=== PATIENT | female | born 1975 | race Caucasian/White ===

== ENCOUNTER 2017-04-09 17:22 | Emergency (ER) | payer BC ==
[~2017-04-09] VITALS: Ht 160 cm; Wt 105.0 kg
[2017-04-09 17:24] VITALS: BP 178/98; PULSE 82; RESP 14; TEMP 97.9; O2SAT 99
[2017-04-09] MEDS ORDERED: FLUT1SPR5 EACH NARE (20:15)
--- NOTE | 2017-04-09 20:18 | PD ---
HPI Chief Complaint: Cold / Flu Symptoms Time Seen by Provider: 20:15 Travel History International Travel<30 days: No Contact w/Intl Traveler<30days: No Traveled to known affect area: No History of Present Illness HPI This patient was examined in the presence of a female nurse. 41-year-old female presents for evaluation of nasal congestion and toothache. She has had a toothache for one month. It is a throbbing pain localized to the right mandibular first premolar, worse when chewing. She started taking amoxicillin 3 days ago for this issue. In addition the patient is having nasal congestion for 2 days. She reports congestion in her nose associated with a dry cough at night. She denies fevers or chills, ear pain, sick contacts. She has no other complaints at this time. PFSH Past Medical History High Cholesterol: Yes Tetanus Vaccination: < 5 Years Influenza Vaccination: No ?: Not LMP: 04/04/17 : 0 Para: 0 Past Surgical History Cholecystectomy: Yes Eye Surgery: Yes (keratoconus surgery to have implants placed) Social History Alcohol Use: Yes (monthly) Tobacco Use: No Substance Use: No Allergies-Medications (Allergen,Severity, Reaction): Coded Allergies: bee venom protein (honey bee) (Verified Allergy, Severe, Anaphylaxis, ) esomeprazole (Verified Allergy, Severe, HIVES, 04/09/17) eucalyptol (Verified Allergy, Severe, BURN , 04/09/17) menthol (Verified Allergy, Severe, BURN , 04/09/17) methyl salicylate (Verified Allergy, Severe, BURN , 04/09/17) naproxen (Verified Allergy, Severe, HIVES, 04/09/17) thymol (Verified Allergy, Severe, BURN , 04/09/17) Reported Meds & Prescriptions Reported Meds & Active Scripts Active Flonase Nasal Halsey (Fluticasone Nasal Halsey) 50 Mcg/Act H[place]y 100 Mcg EACH NARE BID 10 Days Review of Systems Except as stated in HPI: all other systems reviewed are Neg Physical Exam Narrative GENERAL: Well-developed well-nourished female in no acute distress SKIN: Warm and dry. HEAD: Atraumatic. Normocephalic. EYES: Pupils equal and round. No scleral icterus. No injection or drainage. ENT: No nasal bleeding or discharge. Mucous membranes pink and moist. Dental decay noted to the right mandibular first premolar which is tender to palpation. No sublingual edema, no facial edema, no submandibular edema, no trismus NECK: Trachea midline. No JVD. No lymphadenopathy. Neck supple full range of motion. CARDIOVASCULAR: Regular rate and rhythm. No murmur appreciated. RESPIRATORY: No accessory muscle use. Clear to auscultation. Breath sounds equal bilaterally. GASTROINTESTINAL: Abdomen soft, non-tender, nondistended. Hepatic and splenic margins not palpable. Data Data Last Documented VS Vital Signs Date Time Temp Pulse Resp B/P (MAP) Pulse Ox O2 Delivery O2 Flow Rate FiO2 04/09/17 17:24 97.9 82 14 178/98 (124) 99 Orders Orders Ed Discharge Order (04/09/17 20:15) [facility] Medical Decision Making Medical Screen Exam Complete: Yes Emergency Medical Condition: Yes Medical Record Reviewed: Yes Differential Diagnosis Dental caries, pulpitis, pericoronitis, periodontal abscess, rhinitis, sinusitis Narrative Course Examination is consistent with dental caries and rhinitis. She'll be discharged with Flonase. Diagnosis Primary Impression: Rhinitis Additional Impression: Dental caries Additional Instructions: Medication as prescribed. Stay well hydrated well-nourished. Follow-up with dentist for definitive therapy. Return for any emergent medical conditions. Med/Other Pt SpecificInfo: Prescription(s) given Scripts Fluticasone Nasal Halsey (Flonase Nasal Halsey) 50 Mcg/Act H[place]y 100 MCG EACH NARE BID for Allergies for 10 Days, #1 BOTTLE 0 Refills Prov: Tristan Hernandez MD 04/09/17 Disposition: 01 DISCHARGE HOME Condition: Stable Javi Hill Apr 09, 2017 20:18
== END 2017-04-09 20:20 | disposition home or self-care (01) ==
LOC: NEPD 17:22
DX: J31.0 Chronic rhinitis (principal); K02.9 Dental caries, unspecified
CPT/HCPCS: 99283